=== PATIENT | female | born 1980 | race Caucasian/White ===

== ENCOUNTER 2016-09-30 23:06 | Emergency (ER) | payer BC ==
[~2016-09-30] VITALS: Ht 165.1 cm; Wt 62.6 kg
[2016-09-30 23:38] LABS: ABSOLUTE NEUTROPHILS 2.5 thou/uL (1.4-8.2); HEMATOCRIT 40.9 % (37.0-47.0); HEMOGLOBIN 13.9 gm/dL (12.0-15.0); LYMPHOCYTES 46.9 % (24.0-44.0); MCH 31.1 pg (26.0-34.0); MCV 91.6 fL (80.0-100.0); MONOCYTES 8.9 % (1.0-8.0); PLATELET COUNT 307 thou/uL (150-400); POLYS 40.2 % (36.0-66.0); RBC 4.46 mil/uL (4.20-5.00); RDW 12.1 % (10.5-14.5); WBC 6.3 thou/uL (4.0-11.0)
[2016-09-30 23:40] LABS: MANUAL DIFF NO
[2016-09-30 23:48] LABS: CALCIUM 9.3 mg/dL (8.5-10.1); CREATININE 0.8 mg/dL (0.6-1.0); POTASSIUM 3.3 mmol/L (3.5-5.1)
[2016-09-30 23:52] LABS: ALBUMIN 4.2 g/dL (3.4-5.0); DIRECT BILIRUBIN 0.2 mg/dL (<0.1-0.3); TOTAL BILIRUBIN 0.8 mg/dL (<0.1-1.0)
[2016-09-30 23:53] LABS: URINE BILIRUBIN NEGATIVE (Negative); URINE BLOOD NEGATIVE (Negative); URINE COLOR YELLOW; URINE GLUCOSE-RANDOM* NEGATIVE (Negative); URINE KETONES NEGATIVE (Negative); URINE NITRITE NEGATIVE (Negative); URINE PROTEIN (DIPSTICK) NEGATIVE (Negative); URINE SPECIFIC GRAVITY <= 1.005 (1.003-1.035); URINE UROBILINOGEN 0.2 E.U./dl (0.2-1.0)
[2016-10-01] MEDS ORDERED: ONDANSETRON HCL4 M2 PO (01:04)
[2016-10-01 01:30] VITALS: BP 114/81
== END 2016-10-01 01:31 | disposition home or self-care (01) ==
LOC: ER 23:06
PROVIDERS: Nurse Practitioner
DX: K52.9 Noninfective gastroenteritis and colitis, unspecified (principal); F10.99 Alcohol use, unspecified with unspecified alcohol-induced disorder